=== PATIENT | male | born 1990 | race American Indian/Alaskan Native ===

== ENCOUNTER 2021-07-22 18:08 | Emergency (ER) | payer SELFPAY ==
[2021-07-22 18:41] VITALS: BP 128/81
[2021-07-22] MEDS ORDERED: LIDOCAINE-MPF (1%) 10 MG/1 ML VIAL 5 ML INFILTRATI ONE (18:58)
--- NOTE | 2021-07-22 19:02 | Emergency Department Report ---
ED Male HPI - General Chief complaint: Urogenital-Male Stated complaint: CHLAMYDIA Time Seen by Provider: 07/22/21 18:42 Source: patient Mode of arrival: Ambulatory Limitations: No Limitations - History of Present Illness Initial comments: Patient is a 30-year-old male presents emergency room complaints of green penile discharge and dysuria that began yesterday. Patient states that his partner called him and advised him that he tested positive for chlamydia. Patient denies any fever, nausea, vomiting, diarrhea, abdominal pain, hematuria, urinary retention, pain or swelling the testicles. Patient denies any past medical history. No allergies to medications - Related Data Previous Rx's Medication Instructions Recorded Last Taken Type Amoxicillin [Amoxicillin TAB] 875 mg PO BID #20 tablet 08/02/[address] [Marcin Herrera] 75 mg PO BID #20 tablet 08/02/15 Unknown Rx Doxycycline Hyclate [Doxycycline 100 mg PO BID 7 Days #14 tab 07/22/21 Unknown Rx Hyclate TAB] Allergies Allergy/AdvReac Type Severity Reaction Status Date / Time No Known Allergies Allergy Verified 07/22/21 18:41 ED Review of Systems ROS: Stated complaint: CHLAMYDIA Other details as noted in HPI Comment: All other systems reviewed and negative ED Past Medical Hx - Past Medical History Previous Medical History?: No - Social History Smoking Status: Never Smoker Substance Use Type: None - Medications Home Medications: Home Medications Medication Instructions Recorded Confirmed Last Taken Type Amoxicillin [Amoxicillin TAB] 875 mg PO BID #20 tablet 08/02/[address] [Marcin Herrera] 75 mg PO BID #20 tablet 08/02/15 Unknown Rx Doxycycline Hyclate [Doxycycline 100 mg PO BID 7 Days #14 tab 07/22/21 Unknown Rx Hyclate TAB] ED Physical Exam - General Limitations: No Limitations General appearance: alert, in no apparent distress - Head Head exam: Present: atraumatic, normocephalic - Eye Eye exam: Present: normal appearance - ENT ENT exam: Present: mucous membranes moist - Respiratory Respiratory exam: Absent: respiratory distress, accessory muscle use - Neurological Exam Neurological exam: Present: alert, oriented X3 - Psychiatric Psychiatric exam: Present: normal affect, normal mood ED Course Vital Signs 07/22/21 07/22/21 18:40 20:11 Temperature 98.6 F Pulse Rate 83 74 Respiratory 16 15 Rate Blood Pressure 128/81 O2 Sat by Pulse 99 100 Oximetry ED Medical Decision Making - Medical Decision Making Patient is a 30-year-old male presents emergency room complaints of green penile discharge and dysuria that began yesterday. Patient states that his partner called him and advised him that he tested positive for chlamydia. Patient denies any fever, nausea, vomiting, diarrhea, abdominal pain, hematuria, urinary retention, pain or swelling the testicles. Patient denies any past medical history. No allergies to medications. Vitals are normal. Patient is presenting due to exposure to chlamydia and is now symptomatic but denies any abdominal pain or pain or swelling the testicles. Patient given Rocephin IM while in the emergency department. Patient given prescription for doxycycline. Advised patient please take medication as prescribed. Follow-up with the clinic or the health department in order to have a full STD panel performed. Please have any partner tested and treated as well. Avoid sexual intercourse. Return to emergency room for any new or worsening symptoms. Critical care attestation.: If time is entered above; I have spent that time in minutes in the direct care o f this critically ill patient, excluding procedure time. ED Disposition Clinical Impression: Chlamydia contact, Penile discharge, Dysuria Disposition: 01 HOME / SELF CARE / HOMELESS Is pt being admited?: No Does the pt Need Aspirin: No Condition: Stable Instructions: Safe Sex Additional Instructions: please take medication as prescribed. Follow-up with the clinic or the health department in order to have a full STD panel performed. Please have any partner tested and treated as well. Avoid sexual intercourse. Return to emergency room for any new or worsening symptoms. [employer] Address: [address] [place] [id number] Prescriptions: Doxycycline Hyclate [Doxycycline Hyclate TAB] 100 mg PO BID 7 Days #14 tab Referrals: [facility] [Outside] - 3-5 Days [facility] [Provider Group] - 3-5 Days Time of Disposition: 19:01 Print Language: NAURUAN
== END 2021-07-22 20:11 | disposition home or self-care (01) ==
LOC: ED 18:08
DX: A74.9 Chlamydial infection, unspecified (principal); R36.9 Urethral discharge, unspecified; R30.0 Dysuria
CPT/HCPCS: 96372; 99282; J0696; J3490